=== PATIENT | male | born 1970 ===

== ENCOUNTER 2024-07-01 14:58 | Outpatient (CLI) | payer OTHER | END 2024-07-01 23:59 | disposition home or self-care (01) | LOC: MRI02 14:58 | PROVIDERS: ATTEND Student in an Organized Health Care Education/Training Program | DX: S59.901A Unspecified injury of right elbow, initial encounter (principal); G56.21 Lesion of ulnar nerve, right upper limb; X58.XXXA Exposure to other specified factors, initial encounter; Y93.89 Activity, other specified; Y92.89 Other specified places as the place of occurrence of the external cause; Y99.8 Other external cause status | CPT/HCPCS: 73221 ==